=== PATIENT | female | born 1985 | race Caucasian/White ===

== ENCOUNTER → 2024-05-31 | Outpatient (CLI) | payer OTHER, SELFPAY ==
--- NOTE | 2024-05-31 10:00 | ASPOS_PTH ---
PATIENT: CARLOS EDUARDO SHEETS LOC: [facility] U#:[id number] AGE/SX: 38/F ROOM: RE05/31/[address]: Dr. Loco Wood MD : 1985 BED: DIS: 05/31/2024 SPEC #: [id number] RECD: 05/31/24 10:30 STATUS: ALLIE MEEK #: [id number] DALLIN: 05/31/24 10:[address]: Loco Wood DEPT: CYTOLOGY RECD BY: Stephanie Rose ENTERED: 05/31/24 11:16 SP TYPE: ASP HERE OTHR DR: Dr. Don To MD Tissues: Neck, NOS Procedures: Surgery Specimen Level IV Cytology Other Fine Needle Asp on Site HEADER OPERATION: Fine needle aspiration left neck mass PRE-OP DIAGNOSIS: Left neck mass TISSUE SUBMITTED: Smears and fluid for cytology and cellblock DIAGNOSIS CYTOLOGY Fine needle aspiration, left neck mass (smears and cellblock): Mature adipose tissue. Negative for malignancy. See comment. / 06/01/2024 COMMENT A fine needle aspiration was performed and the specimen is evaluated at the time of FNA by Dr. Mccray. Immediate Evaluation = Mature adipose tissue. No evidence of malignancy. A benign lipomatous lesion such as a lipoma is favored. Clinical correlation is suggested. CYTOLOGY STUDY Slides are reviewed. CYTOLOGY GROSS Received is 0.2 ml of saavedra-yellow material labeled with the patient's name, and designated Fine needle aspiration left neck mass. 2 imprints and 2 paps are made from the submitted fluid and the rest is added to CytoL[employer] for cell block preparation. Submitted for cytology study. / 05/31/2024TC:5 CPT:38778,27850,[id number]
== END | disposition home or self-care (01) ==
PROVIDERS: PCP Family Medicine; Referring Provider Otolaryngology; Visit Provider Otolaryngology
DX: R22.1 Localized swelling, mass and lump, neck (principal)
CPT/HCPCS: 10021; 88161; 88305

== ENCOUNTER → 2024-12-02 | Outpatient (CLI) | payer OTHER, SELFPAY ==
[2024-12-08 10:08] LABS: HPV APTIMA, High Risk Negative (Negative)
== END | disposition home or self-care (01) ==
LOC: LABSPEC 14:19
PROVIDERS: PCP Family Medicine; Referring Provider Advanced Practice Midwife; Visit Provider Advanced Practice Midwife
DX: Z12.4 Encounter for screening for malignant neoplasm of cervix (principal)
CPT/HCPCS: 87624; 88175; G0145

== ENCOUNTER → 2024-12-06 | Outpatient (CLI) | payer OTHER, SELFPAY ==
--- NOTE | 2024-12-06 09:06 | US_ITS ---
EXAM: US PELVIS TRANSVAGINAL CLINICAL INDICATION: pelvic pain TECHNIQUE: Transvaginal pelvic ultrasound was performed with grayscale and color Doppler imaging. Transvaginal imaging was used for better evaluation of the endometrium and adnexa. COMPARISON: No relevant prior studies available. FINDINGS: UTERUS/CERVIX: Uterus measures 9.4 x 4.9 x 6.2 cm. The endometrium measures 7 mm. There is a 1.7 x 0.9 x 2.1 cm hypoechoic fluid collection in the lower uterine segment. Anteverted. There is no uterine mass. RIGHT OVARY: The right ovary measures 2.7 x 2.0 x 1.8 cm. Blood flow is present in the right ovary. LEFT OVARY: The left ovary measures 3.0 x 1.9 x 2.6 cm. Blood flow is present in the left ovary. FREE FLUID: None. BLADDER: Empty bladder which cannot be evaluated with this probe. US/Transvaginal Non- IMPRESSION: Hypoechoic fluid collection in the lower uterine segment. No other abnormalities are identified. Electronically Signed: Carlos Manuel Segovia MD at 0:07 EST ,
== END | disposition home or self-care (01) ==
LOC: US 09:02
PROVIDERS: PCP Family Medicine; Referring Provider Advanced Practice Midwife; Visit Provider Advanced Practice Midwife
DX: R10.2 Pelvic and perineal pain (principal)
CPT/HCPCS: 76830